=== PATIENT | male | born 1970 | race Caucasian/White ===

== ENCOUNTER 2024-01-23 12:34 | Emergency (ER) | payer OTHER, SELFPAY ==
--- NOTE | ~2024-01-23 | XR_ITS ---
EXAMINATION: XR foot RT min 3V, XR ankle RT min 3V DATE: 01/23/2024 14:35 INDICATION: Lateral right foot and ankle pain and bruising TECHNIQUE: 1. Anteroposterior, mortise, additional oblique and lateral view of the right ankle were obtained. 2. Dorsoplantar, two oblique and lateral views of the right foot were obtained. COMPARISON: None. FINDINGS: Minimal displacement of a comminuted extra-articular fracture at the distal diaphysis of the right fi fth metatarsal. 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 Otherwise normal alignment at the right foot and ankle. No other fractures identified. Additional mi ld polyarticular osteoarthritis at a few of the tarsal metatarsal and interphalangeal joints. Small A chilles and plantar calcaneal spurs. Soft tissue swelling over the dorsal and lateral aspects of the forefoot. No ankle joint effusion. IMPRESSION: 1. Minimally displaced comminuted extra-articular fracture of the distal diaphysis of the right fifth metatarsal. 2. 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 Reviewed, dictated and finalized at location A. IMPRESSION: 1. Minimally displaced comminuted extra-articular fracture of the distal diaphy sis of the right fifth metatarsal. 2. Mild hallux valgus with severe osteoarthritis at the first metatarsophalange al joint.
[2024-01-23 12:55] VITALS: BP 143/97; PULSE 102; RESP 15; TEMP 36.7; O2SAT 96
--- NOTE | 2024-01-23 13:59 | ED.LOWEXIN ---
HPI - Extremity Injury (Lower) General Chief Complaint: Extremity Injury, Lower <Sneha BergmanAndrea PatriciachristopheMEAGAN - Last Filed: 01/25/24 14:19> Stated Complaint: right foot injury <Sneha BergmanAndrea PatriciachristopheMEAGAN - Last Filed: 01/25/24 14:19> Time Seen by Provider: 01/23/24 13:59 <Sneha BergmanAndrea PatriciachristopheMEAGAN - Last Filed: 01/25/24 14:19> Source: patient, RN notes reviewed and old records reviewed <Sneha BergmanAndrea PatriciachristopheMEAGAN - Last Filed: 01/25/24 14:19> Mode of arrival: ambulatory <Sneha BergmanAndrea PatriciachristopheMEAGAN - Last Filed: 01/25/24 14:19> Limitations: no limitations <Sneha BergmanAndrea NancydavidMEAGAN - Last Filed: 01/25/24 14:19> History of Present Illness HPI Narrative: Patient presents with complaints of bruising, pain, swelling to right ankle and foot. He reports that a few nights ago he accidentally kicked a piece of furniture in the dark. He has been taking prednisone and tramadol for his symptoms <Sneha BergmanAndrea PatriciachristopheMEAGAN - Last Filed: 01/25/24 14:19> Related Data Allergies/Adverse Reactions: Allergies Allergy/AdvReac Type Severity Reaction Status Date / Time No Known Allergies Allergy Verified 01/23/24 14:15 <Sneha Stanford APRN - Last Filed: 01/25/24 14:19> Review of Systems Review of Systems: All systems reviewed & are unremarkable except as noted in HPI and below <Sneha BergmanAndrea PatriciachristopheMEAGAN - Last Filed: 01/25/24 14:19> Constitutional: Constitutional: Reports no additional constitutional complaints <Sneha BergmanAndrea Stanford MEAGAN - Last Filed: 01/25/24 14:19> ENT: Reports system reviewed and no additional complaints, except as documented <Sneha BergmanAndrea StanfordMEAGAN Last Filed: 01/25/24 14:19> Cardiovascular: Cardiovascular: Reports no additional cardiovascular complaints <Sneha Evangelina Stanford [employer] - Last Filed: 01/25/24 14:19> Respiratory: Respiratory: Reports no additional respiratory complaints <Sneha Stanford APRN Last Filed: 01/25/24 14:19> Gastrointestinal: Gastrointestinal: Reports no additional gastrointestinal complaints <Sneha Stanford APRN Last Filed: 01/25/24 14:19> Musculoskeletal: Musculoskeletal: Reports no additional musculoskeletal complaints and Reports as per HPI <Sneha Stanford APRN Last Filed: 01/25/24 14:19> Exam Const: General: cooperative, no acute distress, alert and awake <Sneha Stanford APRN Last Filed: 01/25/24 14:19> Orientation/consciousness: oriented to person, oriented to place and oriented to time <Sneha Stanford APRN Last Filed: 01/25/24 14:19> HENMT: Head: normal to inspection <Snehaliliana Stanford APR Last Filed: 01/25/24 14:19> Resp: Effort & Inspection: normal respiratory effort and able to speak in complete sentences <Snehaliliana Stanford APR Last Filed: 01/25/24 14:19> Auscultation: clear to auscultation bilaterally, no crackles, no rales, no rhonchi and no wheezes <Sneha Stanford APRN Last Filed: 01/25/24 14:19> Cardio: Palpation: normal PMI <Snehaliliana Stanford APR Last Filed: 01/25/24 14:19> Rate: regular rate <Sneha Stanford APRN Last Filed: 01/25/24 14:19> Rhythm: regular rhythm <Sneha Stanford APR Last Filed: 01/25/24 14:19> Heart sounds: S1 normal heart sound present and S2 normal heart sound present <Sneha Stanford APR Last Filed: 01/25/24 14:19> Neuro: General: oriented to person, oriented to place and oriented to time <Snehaliliana Hutchinson AlcchristopheKIRSTIE Last Filed: 01/25/24 14:19> Cranial nerves: Yes CN's II-XII intact bilaterally <Sneha B. MEAGAN Stanford - Last Filed: 01/25/24 14:19> Extrem: Right lower extremity: normal capillary refill, ankle Details: swelling Details: laterally and foot <Sneha Stanford APRN - Last Filed: 01/25/24 14:19> Left lower extremity: normal capillary refill, edema Details: non-pitting and foot Details: ecchymosis (lateral) <Sneha Stanford APRN - Last Filed: 01/25/24 14:19> Psych: Appearance: grossly normal <Sneha Stanford APRN - Last Filed: 01/25/24 14:19> Thought process: Normal thought process p
--- NOTE | 2024-01-23 14:25 | PC.NURSE ---
1415 - Spoke to pt. about unavailability of x-ray at this location today but may send him to another location. Pt. would like to go to [place] for x-ray. Report called to BELLA Kramer.
== END 2024-01-23 15:15 | disposition home or self-care (01) ==
PROVIDERS: Emergency Provider Nurse Practitioner Family
DX: S92.351A Displaced fracture of fifth metatarsal bone, right foot, initial encounter for closed fracture (principal); W22.03XA Walked into furniture, initial encounter
CPT/HCPCS: 73610; 73630; 99214; G0463